=== PATIENT | female | born 1960 | race Caucasian/White ===

== ENCOUNTER → 2019-11-16 | Outpatient (CLI) | payer OTHER ==
[~2019-11-16] MED LIST: HYDACE5 PO
[2019-11-21 16:10] LABS: HPV 16 Negative (Negative); HPV 18 Negative (Negative); HPV OTHER HR TYPES Negative (Negative)
== END | disposition home or self-care (01) ==
LOC: LAB 19:14 → LAB SHORT 19:14
PROVIDERS: Family Medicine
DX: Z01.419 Encounter for gynecological examination (general) (routine) without abnormal findings (principal)
CPT/HCPCS: 87624; G0123

== ENCOUNTER 2023-10-01 12:45 | Emergency (ER) | payer OTHER ==
[~2023-10-01] VITALS: Ht 157.5 cm; Wt 73.5 kg
[2023-10-01 13:10] LABS: BASOPHILS ABSOLUTE AUTO 0.04 K/mm3 (0.00-0.23); BASOPHILS PERCENT AUTO 0 % (0-2); EOSINOPHILS ABSOLUTE AUTO 0.01 K/mm3 (0.00-0.68); EOSINOPHILS PERCENT AUTO 0 % (0-6); Hematocrit 44.6 % (33.0-51.0); Hemoglobin 15.2 g/dL (11.5-16.0); IMMATURE GRAN PERCENT AUTO 1 % (0-1); LYMPHOCYTES ABSOLUTE AUTO 1.46 K/mm3 (0.84-5.20); LYMPHOCYTES PERCENT AUTO 9 % (21-46); MONOCYTES ABSOLUTE AUTO 1.25 K/mm3 (0.16-1.47); MONOCYTES PERCENT AUTO 8 % (4-13); Mean Corpuscular HGB 31.1 pg (26.0-34.0); Mean Corpuscular HGB Conc 34.1 g/dL (31.5-36.5); Mean Corpuscular Volume 91 fL (80-100); Mean Platelet Volume 9.3 fL (9.1-12.4); NEUTROPHILS ABSOLUTE AUTO 12.74 K/mm3 (1.96-9.15); NEUTROPHILS PERCENT AUTO 82 % (41-73); Platelet Count 262 K/mm3 (150-400); RDW Coefficient Variation 12.9 % (11.7-14.2); RDW Standard Deviation 42.6 fL (35.1-46.3); Red Blood Cell Count 4.89 M/mm3 (3.80-5.20)
[2023-10-01 13:33] LABS: Albumin, Blood 3.6 g/dL (3.4-5.0); Albumin/Globulin Ratio 0.9 (0.8-1.8); Bilirubin, Total 0.9 mg/dL (0.1-1.0); Calcium, Blood 10.7 mg/dL (8.5-10.1); Creatinine, Blood 0.56 mg/dL (0.40-1.00); Globulin, Blood 4.1 g/dL (2.2-4.0); Potassium, Blood 3.4 mmol/L (3.5-5.5); Total Protein, Blood 7.7 g/dL (6.4-8.2)
[2023-10-01] MEDS ORDERED: ATOR80 PO (14:08)
[2023-10-01] MEDS ORDERED: LOSA25 PO (14:08)
[2023-10-01] MEDS ORDERED: THERA-D2000 UNIT PO (14:09)
[2023-10-01] MEDS ORDERED: STRIVERDI RESPIM4 G1 IH (14:09)
[2023-10-01] MEDS ORDERED: MOME220I INH (14:09)
[2023-10-01] MEDS ORDERED: ALBU2.5V5 INH (14:10)
[2023-10-01] MEDS ORDERED: Mag Hydrox/AL Hydrox/Simeth 30 ML UDC PO ONE (14:55)
[2023-10-01] MEDS ORDERED: Pantoprazole Sodium 40 MG Injection IV ONE (14:55)
[2023-10-01] MEDS ORDERED: Lidocaine 2% Viscous Soln 15 ML UDC PO ONE (14:55)
[2023-10-01] MEDS ORDERED: Ondansetron HCl 2 MG / ML 2ML Vial IV PRN (16:40)
[2023-10-01] MEDS ORDERED: HYDROmorphone HCl/Pf 1MG SYR IV PRN (16:40)
[2023-10-01] MEDS ORDERED: OMEPRAZOLE MAGN20 MG PO (17:41)
[2023-10-01] MEDS ORDERED: Percocet 5-3251 EACH PO (17:41)
[2023-10-01 18:05] VITALS: BP 160/71
== END 2023-10-01 18:11 | disposition home or self-care (01) ==
LOC: ER 12:45
PROVIDERS: Physician Assistant
DX: R07.9 Chest pain, unspecified (principal); Z79.899 Other long term (current) drug therapy; F17.200 Nicotine dependence, unspecified, uncomplicated; J44.89 Other specified chronic obstructive pulmonary disease
CPT/HCPCS: 71046; 71260; 80053; 84484; 85025; 93005; 93010; 96374-59; 96375-59; 99285-25; A9270; C9113; J1170; J2405; Q9967

== ENCOUNTER → 2023-10-05 | Outpatient (CLI) | payer OTHER ==
[~2023-10-05] MED LIST changes: +ALBU2.5V5 INH; +ATOR80 PO; +LOSA25 PO; +MOME220I INH; +OMEPRAZOLE MAGN20 MG PO; +OXYCODONE-ACET1 EAC3 PO; +Percocet 5-3251 EACH PO; +STRIVERDI RESPIM4 G1 IH; +THERA-D2000 UNIT PO
[2023-10-05 19:30] LABS: Hematocrit 38.7 % (33.0-51.0); Hemoglobin 13.2 g/dL (11.5-16.0); Mean Corpuscular HGB 30.9 pg (26.0-34.0); Mean Corpuscular HGB Conc 34.1 g/dL (31.5-36.5); Mean Corpuscular Volume 91 fL (80-100); Mean Platelet Volume 11.1 fL (9.1-12.4); Platelet Count 220 K/mm3 (150-400); RDW Coefficient Variation 13.1 % (11.7-14.2); RDW Standard Deviation 43.1 fL (35.1-46.3); Red Blood Cell Count 4.27 M/mm3 (3.80-5.20); White Blood Cell Count 10.33 K/mm3 (4.00-11.30)
[2023-10-05 19:34] LABS: Albumin, Blood 2.5 g/dL (3.4-5.0); Albumin/Globulin Ratio 0.5 (0.8-1.8); Bilirubin, Total 1.3 mg/dL (0.1-1.0); Bun/Creatinine Ratio 23.4 (12.0-20.0); Creatinine, Blood 2.01 mg/dL (0.40-1.00); Globulin, Blood 4.8 g/dL (2.2-4.0); Total Protein, Blood 7.3 g/dL (6.4-8.2)
[2023-10-05 19:49] LABS: BAND PERCENT MAN 9 % (0-8); BASOPHILS PERCENT MAN 0 % (0-2); EOSINOPHILS PERCENT MAN 0 % (0-6); LYMPHOCYTES ABSOLUTE MAN 0.41 K/mm3 (0.84-5.20); LYMPHOCYTES PERCENT MAN 4 % (21-46); MONOCYTES ABSOLUTE MAN 0.61 K/mm3 (0.16-1.47); MONOCYTES PERCENT MAN 6 % (4-13); NEUTROPHILS ABSOLUTE MAN 9.29 K/mm3 (1.96-9.15); SEG NEUTROPHILS PERCENT MAN 81 % (41-73); TOTAL CELLS COUNTED 100
== END | disposition home or self-care (01) ==
LOC: LAB SHORT 18:26 → LAB 18:26
PROVIDERS: Family Medicine
DX: R00.0 Tachycardia, unspecified (principal)
CPT/HCPCS: 80053; 85025

== ENCOUNTER 2023-10-06 13:36 | Inpatient (IN) | payer OTHER ==
[~2023-10-06] VITALS: Ht 157.5 cm; Wt 71.5 kg
[~2023-10-06 13:36] MED LIST changes: -OXYCODONE-ACET1 EAC3 PO
[2023-10-06 14:19] LABS: Hematocrit 36.8 % (33.0-51.0); Hemoglobin 12.7 g/dL (11.5-16.0); Mean Corpuscular HGB 30.9 pg (26.0-34.0); Mean Corpuscular HGB Conc 34.5 g/dL (31.5-36.5); Mean Corpuscular Volume 90 fL (80-100); Mean Platelet Volume 10.7 fL (9.1-12.4); Platelet Count 209 K/mm3 (150-400); RDW Coefficient Variation 13.1 % (11.7-14.2); Red Blood Cell Count 4.11 M/mm3 (3.80-5.20); White Blood Cell Count 12.34 K/mm3 (4.00-11.30)
[2023-10-06 14:50] LABS: Albumin, Blood 2.3 g/dL (3.4-5.0); Albumin/Globulin Ratio 0.5 (0.8-1.8); Bilirubin, Total 1.3 mg/dL (0.1-1.0); Bun/Creatinine Ratio 35.6 (12.0-20.0); Calcium, Blood 8.1 mg/dL (8.5-10.1); Creatinine, Blood 1.35 mg/dL (0.40-1.00); Globulin, Blood 4.9 g/dL (2.2-4.0); Total Protein, Blood 7.2 g/dL (6.4-8.2)
[2023-10-06] MEDS ORDERED: NS 1,000 ML IV SCH ×2 (14:55→16:00)
[2023-10-06 15:29] LABS: BAND PERCENT MAN 36 % (0-8); BASOPHILS PERCENT MAN 0 % (0-2); EOSINOPHILS PERCENT MAN 0 % (0-6); LYMPHOCYTES ABSOLUTE MAN 0.37 K/mm3 (0.84-5.20); LYMPHOCYTES PERCENT MAN 3 % (21-46); MONOCYTES ABSOLUTE MAN 1.11 K/mm3 (0.16-1.47); MONOCYTES PERCENT MAN 9 % (4-13); MYELOCYTE ABSOLUTE MAN 0.12 K/mm3 (0.00-0.00); MYELOCYTE PERCENT MAN 1 % (0-0); NEUTROPHILS ABSOLUTE MAN 10.73 K/mm3 (1.96-9.15); SEG NEUTROPHILS PERCENT MAN 51 % (41-73); TOTAL CELLS COUNTED 100
[2023-10-06] MEDS ORDERED: Potassium Chloride 20 MEQ TabCR PO ONE (15:55)
[2023-10-06] MEDS ORDERED: Acetaminophen 500 MG Tab PO PRN (15:55)
[2023-10-06] MEDS ORDERED: Polyethylene Glycol 3350 17 gm PO PRN (15:55)
[2023-10-06] MEDS ORDERED: TraMADol HCl 50 MG Tab PO PRN (16:00)
[2023-10-06] MEDS ORDERED: OXYCODONE-ACET1 EAC3 PO (16:23)
[2023-10-06 17:32] VITALS: BP 131/66
[2023-10-06 18:26] LABS: Source, Urine Clean Catch
[2023-10-06 18:55] LABS: Appearance, Urine Hazy (Clear); Bilirubin, Urine Neg (Neg); Blood, Urine 3+ (Neg); Color, Urine Yellow (P-Yellow); Glucose Qualitative, Urine Neg (Neg); Ketones, Urine 1+ (Neg); Leukocyte Esterase, Urine Neg (Neg); Nitrite, Urine Neg (Neg); Protein, Urine 2+ (Neg); Urobilinogen, Urine NORM (Normal)
--- NOTE | 2023-10-06 18:59 | NUR ---
1730 RECEIVED PT TO RM 333 VIA W/C FROM ER. PT ABLE TO TX SELF TO BED WITH SBA. PT A LITTLE WEAK AND UNSTEADY WHEN FIRST GETTING UP OUT OF CHAIR OR BED. ABLE TO AMBULATE INDEPENDENTLY TO [facility]. IMAGING HERE SHORTLY AFTER ARRIVAL TO COMPLETE ABD AND RENAL US. RECEIVED REPORT FROM MADHAVI VILLAGOMEZ. PT ADMITTED FOR BONNIE, POSSIBLY D/T CONTRAST GIVEN FOR PE STUDY DONE ON WEDNESDAY; PER REPORT. PT RECEIVING IVF'S TO [facility]. UA OBTAINED AND SENT BETWEEN US PICTURES FOR PRE AND POST VOID PICTURES. DENIES FURTHER NEEDS AT THIS TIME. VISITOR TO RM. CALL LT IN REACH. REPORT GIVEN TO CARMEN VILLAGOMEZ.
[2023-10-06 19:00] VITALS: BP 121/64
[2023-10-06 19:15] LABS: Red Blood Cells, Urine 0-2 /hpf (0-2); Squamous Epithelial Cells Many /hpf (Few)
[2023-10-06 19:16] LABS: Amorphous Light (0-Heavy); Bacteria Many /hpf; Mucus Light (0-Heavy); Transitional Epithelial Cells Rare /hpf (0-Rare)
[2023-10-06] MEDS ORDERED: Albuterol 2.5 MG/3 ML VIAL INH PRN (21:20)
[2023-10-06] MEDS ORDERED: Albuterol 2.5 MG/3 ML VIAL INH SCH (21:20)
[2023-10-07 03:03] VITALS: BP 142/77
[2023-10-07 06:15] LABS: Hematocrit 37.6 % (33.0-51.0); Hemoglobin 12.6 g/dL (11.5-16.0); Mean Corpuscular HGB 30.4 pg (26.0-34.0); Mean Corpuscular HGB Conc 33.5 g/dL (31.5-36.5); Mean Corpuscular Volume 91 fL (80-100); Platelet Count 195 K/mm3 (150-400); RDW Coefficient Variation 13.3 % (11.7-14.2); RDW Standard Deviation 44.2 fL (35.1-46.3); Red Blood Cell Count 4.15 M/mm3 (3.80-5.20); White Blood Cell Count 10.76 K/mm3 (4.00-11.30)
--- NOTE | 2023-10-07 06:38 | NUR ---
Patient alert and oriented x3 overnight, VSS, tolerating room air well. NS @ 75 infusing into right AC PIV, tolerating well. Patient ambulating to restroom with standby assistance for voiding, slightly unsteady on feet, slightly impulsive/forgetful of limitations.
[2023-10-07 06:54] LABS: Albumin/Globulin Ratio 0.4 (0.8-1.8); Bilirubin, Total 1.2 mg/dL (0.1-1.0); Bun/Creatinine Ratio 34.3 (12.0-20.0); Calcium, Blood 7.9 mg/dL (8.5-10.1); Creatinine, Blood 0.79 mg/dL (0.40-1.00); Globulin, Blood 4.9 g/dL (2.2-4.0); Potassium, Blood 3.1 mmol/L (3.5-5.5); Total Protein, Blood 6.9 g/dL (6.4-8.2)
[2023-10-07] MEDS ORDERED: Potassium Chloride 20 MEQ TabCR PO ONE (07:20)
[2023-10-07 08:00] VITALS: BP 142/73
[2023-10-07] MEDS ORDERED: Thiamine HCl 100 MG Tab PO SCH (09:00)
[2023-10-07] MEDS ORDERED: Multivitamins 1 Tab PO SCH (09:00)
[2023-10-07] MEDS ORDERED: Nicotine 14 MG PATCH TOP SCH (09:30)
--- NOTE | 2023-10-07 15:50 | NUR ---
SHIFT SUMMARY PT AOX4, INDEPENDENT IN THE ROOM. MEDICATED PER THE EMAR FOR PAIN. CALLS AND MAKES HIS NEEDS KNOWN. NO ACUTE EVENTS THIS SHIFT. TELE APPLIED AND NO EVENTS. CALL LIGHT WITHIN REACH, BED LOCKED AND IN THE LOWEST POSITION. REPORT GIVEN TO THE NURSE THAT WILL RESUME CARE UNTIL SHIFT CHANGE.
[2023-10-07 16:20] VITALS: BP 135/77
[2023-10-07] MEDS ORDERED: Vancomycin HCL 1,500 MG in NS 250 ML IV ONE (17:25)
[2023-10-07] MEDS ORDERED: Piperacillin/Tazobactam Sod 3.375 GM in NS 100 ML IV SCH (18:00)
--- NOTE | 2023-10-07 19:32 | NUR ---
SHIFT SUMMARY- THIS RN ASSUMED CARE AT 1615. PT MEDICATED FOR ABD PAIN ONCE. PER DR LAWRENCE THE MRI SHOWS AN ABCESS AND THE SURGEON DR ROSA IS GOING TO COME SEE THE PT. BLOOD CULTURES COMPLETED. IV ABX STARTED. PT HAD A CT ABD AND PELVIS WELL THIS EVENING. PT IN BED WITH IV ABX INFUSING. BEDSIDE REPORT COMPLETED WITH HERNANDO HANSEN.
[2023-10-07 19:52] VITALS: BP 167/72
--- NOTE | 2023-10-07 20:32 | NUR ---
WARD AIDE REPORTS ST 130 WITH [address] 160 AND BACK DOWN. PATIENT ASYMPTOMATIC. REPORTED COUGHING EVENT PRIOR. [facility].
[2023-10-07] MEDS ORDERED: NS 250 ML IV PRN (21:40)
[2023-10-08 02:45] VITALS: BP 141/91
--- NOTE | 2023-10-08 04:13 | NUR ---
SHIFT SUMMARY PATIENT FEBRILE AT START OF SHIFT 100.4 AND BACKDOWN TO 97.3. TELEMETRY REPORTED ST 130'S AND SLOWLY DOWN TO 120'S AND NOW ST 104. AXO X 4 AND INDEPENDENT IN ROOM. PIV INTACT. IV ABX INFUSED. DENIES CHEST PAIN, SOB, AND N/V. HYPERTENSIVE AT SHIFT CHANGE 167/72 AND NOW 141/91. LIFE PARTNER IN ROOM FOR A FEW HOURS BEFORE LEAVING. CALL LIGHT IN REACH. BED IN LOWEST POSITION. WILL CONTINUE TO MONITOR UNTIL DAY SHIFT NURSE ASSUMES CARE.
[2023-10-08 05:40] LABS: Hematocrit 34.7 % (33.0-51.0); Hemoglobin 11.8 g/dL (11.5-16.0); Mean Corpuscular HGB 30.7 pg (26.0-34.0); Mean Corpuscular Volume 90 fL (80-100); Platelet Count 185 K/mm3 (150-400); RDW Coefficient Variation 13.6 % (11.7-14.2); RDW Standard Deviation 45.3 fL (35.1-46.3); Red Blood Cell Count 3.84 M/mm3 (3.80-5.20); White Blood Cell Count 16.84 K/mm3 (4.00-11.30)
[2023-10-08 06:13] LABS: Albumin, Blood 1.7 g/dL (3.4-5.0); Albumin/Globulin Ratio 0.4 (0.8-1.8); Bilirubin, Total 1.2 mg/dL (0.1-1.0); Bun/Creatinine Ratio 24.9 (12.0-20.0); Calcium, Blood 7.9 mg/dL (8.5-10.1); Creatinine, Blood 0.68 mg/dL (0.40-1.00); Globulin, Blood 4.6 g/dL (2.2-4.0); Potassium, Blood 3.7 mmol/L (3.5-5.5); Total Protein, Blood 6.3 g/dL (6.4-8.2)
[2023-10-08] MEDS ORDERED: Vancomycin HCL 1,000 MG in NS 250 ML IV SCH ×2 (07:00→19:00)
[2023-10-08 07:29] VITALS: BP 144/82
[2023-10-08] MEDS ORDERED: HYDROcodone 5-APAP 325 TAB PO PRN (15:55)
[2023-10-08 16:00] VITALS: BP 150/79
--- NOTE | 2023-10-08 18:34 | NUR ---
SHIFT SUMMARY: PT IS A/O X 4, IND WITH STANDBY ASSIST IN ROOM, PLEASANT AND COOPERATIVE WITH CARE. PT PAIN WAS NOT WELL MANAGED WITH TRAMADOL. NORCO ORDERED AND PT REPORTED EFFECTIVE PAIN MANAGEMENT FOR ABD PAIN. PT REPORTING SHE HAS APPETITE BUT DOES NOT LIKE THE FOOD. OFFERED SNACKS. INSTRUCTED PT HOW TO ORDER FROM MENU. PT AMBULATED GAITAN THIS EVENING AND WAS STEADY ON FEET. PT HAS MOTTLED SKIN FROM THIGHS DOWN. SKIN IS WARM, FAINT PEDAL PULSES. PT REPORTS "I'M ALWAYS LIKE THIS , IT'S FROM SMOKING SO MANY YEARS." PT DENIES N/T TO EXT. ON RA. SLIGHTLY ELEVATED BP THIS EVENING AND HR 106. NO C/O CP OR PRESSURE.
[2023-10-08 20:03] VITALS: BP 136/70
[2023-10-09] MEDS ORDERED: Mometasone Furoate Inhaler 220 mcg 14 ACT INH SCH (01:30)
[2023-10-09] MEDS ORDERED: Albuterol 2.5 MG/3 ML VIAL INH SCH (02:00)
[2023-10-09 05:10] VITALS: BP 150/78
[2023-10-09 05:11] LABS: Hemoglobin 11.3 g/dL (11.5-16.0); Mean Corpuscular HGB Conc 34.2 g/dL (31.5-36.5); Mean Corpuscular Volume 90 fL (80-100); Platelet Count 205 K/mm3 (150-400); RDW Coefficient Variation 13.8 % (11.7-14.2); Red Blood Cell Count 3.65 M/mm3 (3.80-5.20); White Blood Cell Count 16.35 K/mm3 (4.00-11.30)
[2023-10-09 05:31] LABS: Vancomycin, Trough 12.6 ug/mL (5.0-10.0)
[2023-10-09 05:36] LABS: Albumin, Blood 1.6 g/dL (3.4-5.0); Albumin/Globulin Ratio 0.3 (0.8-1.8); Bilirubin, Total 1.5 mg/dL (0.1-1.0); Bun/Creatinine Ratio 18.9 (12.0-20.0); Calcium, Blood 7.8 mg/dL (8.5-10.1); Creatinine, Blood 0.58 mg/dL (0.40-1.00); Globulin, Blood 4.8 g/dL (2.2-4.0); Potassium, Blood 3.1 mmol/L (3.5-5.5); Total Protein, Blood 6.4 g/dL (6.4-8.2)
--- NOTE | 2023-10-09 06:16 | NUR ---
SHIFT SUMMARY: NO ACUTE EVENTS. PAIN WELL CONTROLLED WITH CURRENT MEDICATION REGIMEN. HAD TWO 5-SECOND INSTANCES OF SVT (PER HEALTHCARE FACILITY ADMINISTRATOR) WITH RATE UP TO 160; DENIED CHEST PAIN, WAS SLEEPING WHEN THEY OCCURRED. GETTING UP TO BR WITH SBA, DENIED DIZZINESS. SKIN IS MOTTLED ON BLE, WHICH SHE STATED IS NORMAL FOR HER. WEARING SCD'S. IS AWAITING SURGERY CONSULT.
[2023-10-09] MEDS ORDERED: Vancomycin HCL 1,250 MG in NS 250 ML IV SCH (07:00)
[2023-10-09 07:28] VITALS: BP 125/70
--- NOTE | 2023-10-09 14:35 | NUR ---
SHIFT SUMMARY: PATIENT A/OX4, CALM, PLEASANT AND COOPERATIVE c CARE. PATIENT DENIES CP/PRESSURE, SOB, N/V AND DIZZINESS. NO EVENTS ON TELE, ST HR IN THE LOW 100'S BPM THIS SHIFT. PATIENT REPORTS PAIN WELL CONTROLLED c EMAR PAIN MEDS. PATIENT HAS MOD APPETITE, CONTINENT OF BOWEL/BLADDER, AMBULATES TO BATHROOM INDEPENDENTLY T/O SHIFT. VITAL SIGNS REVIEWED. PATIENT RECEIVED IV ABX/SCHEDULED MEDS PER. PATIENT RESTING IN BED ON/OFF, NO COMPLAINTS OR DENIES NEW CONCERNED THIS SHIFT. CALL LIGHT IN REACH.
[2023-10-09 14:49] VITALS: BP 151/80
[2023-10-09 19:39] VITALS: BP 157/86
--- NOTE | 2023-10-09 19:52 | NUR ---
PATIENT WITH TEMP 101.3 AND INCREASING PAIN IN EPIGASTRIC REGION AND R SHOULDER. RECEIVING IV VANCO AND ZOSYN. MEDICATED FOR PAIN AND FEVER AT 1939. NOTIFIED DR. ISAAC VIA TELEPHONE. NO NEW ORDERS AT THIS TIME. WILL CONTINUE TO MONITOR.
[2023-10-09 20:52] VITALS: BP 146/82
[2023-10-10 05:31] VITALS: BP 161/83
[2023-10-10 07:07] LABS: Vancomycin, Trough 24.3 ug/mL (5.0-10.0)
--- NOTE | 2023-10-10 07:18 | NUR ---
SHIFT SUMMARY: TEMPERATURE DECREASED TO 99.3 AFTER TYLENOL GIVEN. NO EVENTS ON TELEMETRY, SR-ST 95-120'S. C/O PAIN IN BACK, EPIGASTRIC, AND R SHOULDER; MEDICATED PER EMAR WITH ADEQUATE RELIEF. ON ROOM AIR, EXPIRATORY WHEEZES THROUGHOUT, RECEIVING NEB TREATMENTS. WEARING SCD'S, IS INDEPENDENT IN ROOM.
[2023-10-10 07:38] VITALS: BP 135/83
[2023-10-10 07:52] LABS: Hematocrit 36.6 % (33.0-51.0); Hemoglobin 12.4 g/dL (11.5-16.0); Mean Corpuscular HGB 30.6 pg (26.0-34.0); Mean Corpuscular HGB Conc 33.9 g/dL (31.5-36.5); Mean Corpuscular Volume 90 fL (80-100); Mean Platelet Volume 10.4 fL (9.1-12.4); Platelet Count 255 K/mm3 (150-400); RDW Coefficient Variation 14.2 % (11.7-14.2); RDW Standard Deviation 47.1 fL (35.1-46.3); Red Blood Cell Count 4.05 M/mm3 (3.80-5.20); White Blood Cell Count 18.38 K/mm3 (4.00-11.30)
[2023-10-10 08:06] LABS: Bun/Creatinine Ratio 13.3 (12.0-20.0); Calcium, Blood 8.4 mg/dL (8.5-10.1); Creatinine, Blood 0.98 mg/dL (0.40-1.00); Potassium, Blood 3.3 mmol/L (3.5-5.5)
[2023-10-10] MEDS ORDERED: Potassium Chloride 20 MEQ TabCR PO ONE (12:20)
[2023-10-10 15:14] VITALS: BP 142/80
--- NOTE | 2023-10-10 15:58 | NUR ---
SHIFT SUMMARY: PATIENT HAS A LOW GRADE TEMP OF 99.3, NO EVENTS ON TELE ST IN THE MID 110'S. PATIENT A/OX4, CALM, PLEASANT AND COOPERATIVE c CARE, PAIN TO R SHOULDER/EPIGASTRIC WELL CONTROLLED c EMAR PAIN MEDS. PATIENT AMBULATED c SPOUSE TODAY OUT IN THE GAITAN, DID WELL, DENIES SOB, DIZZINESS, N/V, CP/PRESSURE. PATIENT HAS FAIR APPETITE, CONTINENT OF BOWEL/BLADDER, AMBULATES TO BATHROOM INDEPENDENTLY T/O SHIFT. PATIENT RECEIVED IV ABX/SCHEDULED MEDS PER EMAR. VITAL SIGNS REVIEWED. CALL LIGHT IN REACH.
[2023-10-10] MEDS ORDERED: Vancomycin HCL 1,000 MG in NS 250 ML IV SCH (16:00)
[2023-10-10 19:24] VITALS: BP 134/70
[2023-10-11 02:51] VITALS: BP 141/82
--- NOTE | 2023-10-11 05:26 | NUR ---
SHIFT SUMMARY PT A&0X4 AND ANSWERS QUESTIONS APPROPRIATELY. HS MEDICATIONS ADMINISTERED. IV ANTIBIOTICS INFUSED VIA IV. PT MEDICATED PER EMAR FOR PAIN IN HER RIGHT SHOULDER. PT INDEPENDENT IN ROOM. PT SPENT SHIFT RESTING IN BED WITH EYES CLOSED. VSS, NO COMPLAINTS OF CP/PRESSURE OR SOB. HR SHOWING SINUS TACH ON TELEMETRY, NO ADVERSE EFFECTS IN PT. NO ACUTE EVENTS AT THIS TIME. PT LEFT IN A POSITION OF SAFETY WITH FALL PRECAUTIONS IN PLACE AND CALL LIGHT IN REACH.
[2023-10-11 05:37] LABS: Hematocrit 30.8 % (33.0-51.0); Hemoglobin 10.4 g/dL (11.5-16.0); Mean Corpuscular HGB 30.6 pg (26.0-34.0); Mean Corpuscular HGB Conc 33.8 g/dL (31.5-36.5); Mean Corpuscular Volume 91 fL (80-100); Mean Platelet Volume 10.3 fL (9.1-12.4); Platelet Count 226 K/mm3 (150-400); RDW Coefficient Variation 14.2 % (11.7-14.2); RDW Standard Deviation 46.9 fL (35.1-46.3); White Blood Cell Count 16.67 K/mm3 (4.00-11.30)
[2023-10-11 06:05] LABS: Albumin, Blood 1.5 g/dL (3.4-5.0); Anion Gap 11 mmol/L (3-11); Blood Urea Nitrogen 21 mg/dL (8-24); Bun/Creatinine Ratio 14.3 (12.0-20.0); CO2, Blood 26 mmol/L (21-32); Calcium, Blood 8.8 mg/dL (8.5-10.1); Chloride, Blood 104 mmol/L (98-108); Creatinine, Blood 1.47 mg/dL (0.40-1.00); Glomerular Filtration Rate 40 (60-); Glucose, Blood 140 mg/dL (70-99); Phosphorus, Blood 3.1 mg/dL (2.5-4.9); Potassium, Blood 3.5 mmol/L (3.5-5.5); Sodium, Blood 137 mmol/L (136-145)
[2023-10-11] MEDS ORDERED: Magnesium Sulf 2 GM/Water 50ML 50 ML IV STA (06:13)
[2023-10-11 07:21] VITALS: BP 144/77
[2023-10-11] MEDS ORDERED: Lactated Ringer's 1,000 ML IV SCH (09:00)
[2023-10-11 13:18] LABS: Hematocrit 32.9 % (33.0-51.0); Hemoglobin 11.2 g/dL (11.5-16.0)
[2023-10-11 15:05] VITALS: BP 137/72
[2023-10-11 15:50] LABS: Vancomycin, Trough 30.6 ug/mL (5.0-10.0)
[2023-10-11] MEDS ORDERED: Dose Adjust by Pharmacy XX STA (15:53)
[2023-10-11] MEDS ORDERED: HYDROmorphone HCl/Pf 1MG SYR IV PRN (16:55)
--- NOTE | 2023-10-11 18:35 | NUR ---
SHIFT SUMMARY PT AXO, PLEASANT AND COOPERATIVE WITH CARE THOUGH PAINFUL. PT MEDICATED FOR PAIN PER EMAR THOUGH PT CONTINUED TO BE PAINFUL RATING PAIN 7-10/10. DR MEIER NOTIFED, NEW ORDERS IN PLACE. PT EXPRESSED GRATITUDE THAT HER PAIN WAS NOW 2/10 AND REDUCING FURTHER AND THAT SHE GOT SOME RELIEF. IV PATENT AND INFUSING PER EMAR. VSS. PT UP AD KAYLIE WITH STEADY GAIT. BED IN LOW POSITION, CALL LIGHT WITHIN REACH.
[2023-10-11 19:23] VITALS: BP 163/95
[2023-10-11] MEDS ORDERED: Lactobacil 2-S.Thermo-Bifido 1 1 Cap PO SCH (21:00)
[2023-10-12 02:16] VITALS: BP 159/88
[2023-10-12 05:28] LABS: BASOPHILS ABSOLUTE AUTO 0.04 K/mm3 (0.00-0.23); BASOPHILS PERCENT AUTO 0 % (0-2); EOSINOPHILS ABSOLUTE AUTO 0.08 K/mm3 (0.00-0.68); EOSINOPHILS PERCENT AUTO 0 % (0-6); Hematocrit 31.5 % (33.0-51.0); Hemoglobin 10.7 g/dL (11.5-16.0); IMMATURE GRAN PERCENT AUTO 2 % (0-1); LYMPHOCYTES ABSOLUTE AUTO 1.45 K/mm3 (0.84-5.20); LYMPHOCYTES PERCENT AUTO 8 % (21-46); MONOCYTES ABSOLUTE AUTO 0.94 K/mm3 (0.16-1.47); MONOCYTES PERCENT AUTO 5 % (4-13); Mean Corpuscular HGB 30.7 pg (26.0-34.0); Mean Corpuscular Volume 90 fL (80-100); Mean Platelet Volume 9.7 fL (9.1-12.4); NEUTROPHILS ABSOLUTE AUTO 15.33 K/mm3 (1.96-9.15); NEUTROPHILS PERCENT AUTO 85 % (41-73); Platelet Count 259 K/mm3 (150-400); RDW Coefficient Variation 14.2 % (11.7-14.2); Red Blood Cell Count 3.49 M/mm3 (3.80-5.20); White Blood Cell Count 18.14 K/mm3 (4.00-11.30)
--- NOTE | 2023-10-12 05:44 | NUR ---
SHIFT SUMMARY PT A&OX4 AND ANSWERS QUESTIONS APPROPRIATELY. PT RECEIVED IV ANTIBIOTICS. PT VSS, NO COMPLAINTS OF CP/PRESSURE OR SOB. PT SPENT MOST OF SHIFT IN BED BUT VERBALIZES DIFFICULTY WITH SLEEP. PT RUNNING NSR ON CONTINUOUS TELEMETRY. NO ACUTE EVENTS AT THIS TIME, PT LEFT IN A POSITION OF SAFETY WITH FALL PRECAUTIONS IN PLACE. CALL LIGHT IN REACH.
[2023-10-12 05:47] LABS: Alanine Aminotransfer (ALT/SGP 45 U/L (12-78); Albumin, Blood 1.6 g/dL (3.4-5.0); Albumin/Globulin Ratio 0.3 (0.8-1.8); Alk Phos 118 U/L (50-136); Anion Gap 12 mmol/L (3-11); Aspartate Aminotrans (AST/SGOT 44 U/L (12-37); Bilirubin, Total 1.3 mg/dL (0.1-1.0); Blood Urea Nitrogen 20 mg/dL (8-24); Bun/Creatinine Ratio 13.8 (12.0-20.0); CO2, Blood 26 mmol/L (21-32); Calcium, Blood 8.7 mg/dL (8.5-10.1); Chloride, Blood 103 mmol/L (98-108); Creatinine, Blood 1.45 mg/dL (0.40-1.00); Globulin, Blood 4.8 g/dL (2.2-4.0); Glomerular Filtration Rate 41 (60-); Glucose, Blood 117 mg/dL (70-99); Magnesium, Blood 1.6 mg/dL (1.6-2.4); Potassium, Blood 3.8 mmol/L (3.5-5.5); Sodium, Blood 137 mmol/L (136-145); Total Protein, Blood 6.4 g/dL (6.4-8.2); Vancomycin, Random 22.4 ug/mL
[2023-10-12 07:33] VITALS: BP 148/73
[2023-10-12 12:24] LABS: Stool Occult Blood Guaiac 1 Neg (Neg)
[2023-10-12 15:50] VITALS: BP 159/92
[2023-10-12 19:36] VITALS: BP 173/82
--- NOTE | 2023-10-12 20:13 | NUR ---
SHIFT SUMMARY- PT ALERT, ORIENTED AND INDEPENDENT IN THE ROOM. BEDSIDE REPORT COMPLETED WITH NIGHT RN. PT STATED AT THE TIME OF REPORT SHE WAS GETTING TO WHERE SHE MIGHT NEED SOME PAIN MEDICATION. NIGHT RN AWARE. NO CURRENT S&S OF DISTRESS NOTED.
[2023-10-12] MEDS ORDERED: Vancomycin HCL 1,250 MG in NS 250 ML IV SCH (21:00)
--- NOTE | 2023-10-13 05:18 | NUR ---
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 HERE FOR ABD PAIN AND LIVER ABSCESS. COMPLAINED OF ABD PAIN RADIATING TO THE LATERAL SIDE OF ADB. PAIN MEDS GIVEN. PATIENT SLEPT WEEL AFTER TAKING PAIN MEDS.
[2023-10-13 05:30] VITALS: BP 156/91
[2023-10-13 06:12] LABS: BASOPHILS ABSOLUTE AUTO 0.03 K/mm3 (0.00-0.23); BASOPHILS PERCENT AUTO 0 % (0-2); EOSINOPHILS ABSOLUTE AUTO 0.06 K/mm3 (0.00-0.68); EOSINOPHILS PERCENT AUTO 0 % (0-6); Hematocrit 30.1 % (33.0-51.0); Hemoglobin 9.9 g/dL (11.5-16.0); IMMATURE GRAN ABSOLUTE AUTO 0.22 K/mm3 (0.00-0.10); IMMATURE GRAN PERCENT AUTO 1 % (0-1); LYMPHOCYTES ABSOLUTE AUTO 1.12 K/mm3 (0.84-5.20); LYMPHOCYTES PERCENT AUTO 7 % (21-46); MONOCYTES ABSOLUTE AUTO 0.95 K/mm3 (0.16-1.47); MONOCYTES PERCENT AUTO 6 % (4-13); Mean Corpuscular HGB 30.1 pg (26.0-34.0); Mean Corpuscular HGB Conc 32.9 g/dL (31.5-36.5); Mean Corpuscular Volume 92 fL (80-100); Mean Platelet Volume 9.7 fL (9.1-12.4); NEUTROPHILS ABSOLUTE AUTO 13.53 K/mm3 (1.96-9.15); NEUTROPHILS PERCENT AUTO 85 % (41-73); Platelet Count 279 K/mm3 (150-400); RDW Coefficient Variation 14.1 % (11.7-14.2); Red Blood Cell Count 3.29 M/mm3 (3.80-5.20); White Blood Cell Count 15.91 K/mm3 (4.00-11.30)
[2023-10-13 06:32] LABS: Albumin, Blood 1.5 g/dL (3.4-5.0); Albumin/Globulin Ratio 0.3 (0.8-1.8); Bun/Creatinine Ratio 12.4 (12.0-20.0); Calcium, Blood 8.5 mg/dL (8.5-10.1); Creatinine, Blood 1.53 mg/dL (0.40-1.00); Globulin, Blood 4.9 g/dL (2.2-4.0); Magnesium, Blood 1.7 mg/dL (1.6-2.4); Potassium, Blood 3.8 mmol/L (3.5-5.5); Total Protein, Blood 6.4 g/dL (6.4-8.2)
[2023-10-13 07:36] VITALS: BP 165/82
[2023-10-13 15:26] VITALS: BP 151/88
--- NOTE | 2023-10-13 18:24 | NUR ---
SHIFT SUMMARY PT CONT WITH LEVEL OF CARE WITH NO ACUTE CHANGES NOTED THIS SHIFT.
[2023-10-13 20:46] VITALS: BP 159/83
[2023-10-14 04:19] VITALS: BP 178/89
--- NOTE | 2023-10-14 04:57 | NUR ---
SUMMARY- PT PAIN MANGED WELL WITH ORDERED PO MEDS. PT HAS NOTED SWELLING ON LEFT FOOT. PT STATES SWELLING IS NEW TO HER. DENIES DISCOMFORT IN FOOT. PT HAS BEEN UP TO VOID. NO OTHER ISSES NOTED. PT HAS BEEN ABLE TO REST COMFORTABLY THROUGHOUT NIGHT. PT CURRENTLY AWAKE AND IN NO DISTRESS. CALL LIGHT IN REACH.
[2023-10-14 05:15] LABS: BASOPHILS ABSOLUTE AUTO 0.03 K/mm3 (0.00-0.23); BASOPHILS PERCENT AUTO 0 % (0-2); EOSINOPHILS ABSOLUTE AUTO 0.07 K/mm3 (0.00-0.68); EOSINOPHILS PERCENT AUTO 1 % (0-6); Hematocrit 29.5 % (33.0-51.0); Hemoglobin 9.7 g/dL (11.5-16.0); IMMATURE GRAN ABSOLUTE AUTO 0.19 K/mm3 (0.00-0.10); IMMATURE GRAN PERCENT AUTO 1 % (0-1); LYMPHOCYTES ABSOLUTE AUTO 0.83 K/mm3 (0.84-5.20); LYMPHOCYTES PERCENT AUTO 6 % (21-46); MONOCYTES ABSOLUTE AUTO 1.01 K/mm3 (0.16-1.47); MONOCYTES PERCENT AUTO 7 % (4-13); Mean Corpuscular HGB Conc 32.9 g/dL (31.5-36.5); Mean Corpuscular Volume 91 fL (80-100); Mean Platelet Volume 9.4 fL (9.1-12.4); NEUTROPHILS ABSOLUTE AUTO 12.18 K/mm3 (1.96-9.15); NEUTROPHILS PERCENT AUTO 85 % (41-73); Platelet Count 299 K/mm3 (150-400); Red Blood Cell Count 3.23 M/mm3 (3.80-5.20); White Blood Cell Count 14.31 K/mm3 (4.00-11.30)
[2023-10-14 05:45] LABS: Albumin, Blood 1.6 g/dL (3.4-5.0); Albumin/Globulin Ratio 0.3 (0.8-1.8); Bilirubin, Total 0.9 mg/dL (0.1-1.0); Bun/Creatinine Ratio 10.9 (12.0-20.0); Calcium, Blood 8.7 mg/dL (8.5-10.1); Creatinine, Blood 1.47 mg/dL (0.40-1.00); Globulin, Blood 4.8 g/dL (2.2-4.0); Potassium, Blood 3.5 mmol/L (3.5-5.5); Total Protein, Blood 6.4 g/dL (6.4-8.2)
[2023-10-14 07:32] VITALS: BP 164/82
[2023-10-14] MEDS ORDERED: Enoxaparin 100 MG/ML 1ML SYR SC SCH (12:00)
[2023-10-14 14:25] VITALS: BP 158/73
[2023-10-14 15:10] VITALS: BP 158/73
[2023-10-14 15:40] VITALS: BP 158/73
--- NOTE | 2023-10-14 16:40 | NUR ---
TRANSFER TO [facility] Patient alert & oriented x4. VSS. Plan to transfer to [facility] in [facility] for GI interventions for Liver abscess. Called report to Teresa VILLAGOMEZ at [facility]. Patient will be transported via gurnery. Patient left at 1650.
== END 2023-10-14 16:55 | disposition short-term general hospital (02) | DRG 682 ==
LOC: ER 13:36 → MEDS 13:37
PROVIDERS: Family Medicine; Physician Assistant; ADMIT Internal Medicine
DX: N17.0 Acute kidney failure with tubular necrosis (principal); A41.9 Sepsis, unspecified organism; I81 Portal vein thrombosis; K75.0 Abscess of liver; R65.20 Severe sepsis without septic shock; E87.1 Hypo-osmolality and hyponatremia; D64.9 Anemia, unspecified; J44.9 Chronic obstructive pulmonary disease, unspecified; F10.20 Alcohol dependence, uncomplicated; E87.6 Hypokalemia; E83.42 Hypomagnesemia; F17.210 Nicotine dependence, cigarettes, uncomplicated; E88.810 Metabolic syndrome; Z98.890 Other specified postprocedural states
CPT/HCPCS: 36415; 71046; 73502; 74176; 74177; 74183; 76700; 76857; 80048; 80053; 80069; 80202; 81001; 82140; 82272; 82550; 83036; 83690; 83735; 84484; 85014; 85018; 85025; 85027; 87040; 87086; 93005; 93010; 94640; 94664; 94760; 96360; 96361; 96365; 96366; 96367; 97110; 97161; 99285-25; A9270; A9581; G0378; J1170; J1650; J2543; J3370; J3475; J7030; J7050; J7120; Q9967

== ENCOUNTER 2023-10-23 12:17 | Emergency (ER) | payer OTHER ==
[~2023-10-23] VITALS: Ht 152.4 cm; Wt 68.0 kg
[~2023-10-23 12:17] MED LIST changes: +OXYCODONE-ACET1 EAC3 PO
[2023-10-23 14:36] VITALS: BP 135/68
== END 2023-10-23 14:39 | disposition home or self-care (01) ==
LOC: ER 12:17
DX: Z00.8 Encounter for other general examination (principal); J44.89 Other specified chronic obstructive pulmonary disease; I10 Essential (primary) hypertension; F17.210 Nicotine dependence, cigarettes, uncomplicated; Z79.899 Other long term (current) drug therapy
CPT/HCPCS: 99282

== ENCOUNTER → 2023-11-10 | Outpatient (CLI) | payer OTHER ==
[2023-11-10 11:43] LABS: BASOPHILS ABSOLUTE AUTO 0.03 K/mm3 (0.00-0.23); BASOPHILS PERCENT AUTO 0 % (0-2); EOSINOPHILS ABSOLUTE AUTO 0.14 K/mm3 (0.00-0.68); EOSINOPHILS PERCENT AUTO 2 % (0-6); Hematocrit 34.1 % (33.0-51.0); Hemoglobin 11.2 g/dL (11.5-16.0); IMMATURE GRAN ABSOLUTE AUTO 0.02 K/mm3 (0.00-0.10); IMMATURE GRAN PERCENT AUTO 0 % (0-1); LYMPHOCYTES PERCENT AUTO 34 % (21-46); MONOCYTES PERCENT AUTO 7 % (4-13); Mean Corpuscular HGB 29.9 pg (26.0-34.0); Mean Corpuscular HGB Conc 32.8 g/dL (31.5-36.5); Mean Corpuscular Volume 91 fL (80-100); Mean Platelet Volume 10.8 fL (9.1-12.4); NEUTROPHILS ABSOLUTE AUTO 4.67 K/mm3 (1.96-9.15); NEUTROPHILS PERCENT AUTO 57 % (41-73); Platelet Count 285 K/mm3 (150-400); RDW Coefficient Variation 13.9 % (11.7-14.2); RDW Standard Deviation 46.5 fL (35.1-46.3); Red Blood Cell Count 3.74 M/mm3 (3.80-5.20); White Blood Cell Count 8.26 K/mm3 (4.00-11.30)
[2023-11-10 12:10] LABS: Albumin, Blood 2.9 g/dL (3.4-5.0); Albumin/Globulin Ratio 0.7 (0.8-1.8); Bilirubin, Total 0.4 mg/dL (0.1-1.0); Creatinine, Blood 0.91 mg/dL (0.40-1.00); Globulin, Blood 4.1 g/dL (2.2-4.0); Potassium, Blood 3.3 mmol/L (3.5-5.5)
== END | disposition home or self-care (01) ==
LOC: LAB SHORT 10:40
PROVIDERS: Family Medicine
DX: K75.0 Abscess of liver (principal)
CPT/HCPCS: 80053; 85025

== ENCOUNTER 2024-03-06 10:44 | Emergency (ER) | payer OTHER ==
[~2024-03-06] VITALS: Ht 157.5 cm; Wt 70.3 kg
[2024-03-06] MEDS ORDERED: ELIQUIS5 M2 PO (10:56)
[2024-03-06] MEDS ORDERED: Aspir 8181 MG PO (10:57)
[2024-03-06] MEDS ORDERED: Acetaminophen 500 MG Tab PO ONE (11:20)
[2024-03-06] MEDS ORDERED: Methyl Salicylate/Menth/Camph 57 GM TUBE TOP ONE (11:20)
[2024-03-06] MEDS ORDERED: Methocarbamol 500 MG Tab PO ONE (11:20)
[2024-03-06 12:15] VITALS: BP 166/102
[2024-03-06] MEDS ORDERED: Robaxin750 MG PO (12:46)
== END 2024-03-06 12:58 | disposition home or self-care (01) ==
LOC: ER 10:44
DX: S16.1XXA Strain of muscle, fascia and tendon at neck level, initial encounter (principal); S46.912A Strain of unspecified muscle, fascia and tendon at shoulder and upper arm level, left arm, initial encounter; I10 Essential (primary) hypertension; E78.5 Hyperlipidemia, unspecified; M62.830 Muscle spasm of back; J44.9 Chronic obstructive pulmonary disease, unspecified; Z79.899 Other long term (current) drug therapy; Z79.01 Long term (current) use of anticoagulants; Z79.82 Long term (current) use of aspirin; Z87.891 Personal history of nicotine dependence; V89.2XXA Person injured in unspecified motor-vehicle accident, traffic, initial encounter
CPT/HCPCS: 70450; 72125; 99284-25; A9270

== ENCOUNTER → 2024-12-20 | Outpatient (CLI) | payer OTHER ==
[~2024-12-20] MED LIST changes: +Aspir 8181 MG PO; +ELIQUIS5 M2 PO; +Robaxin750 MG PO
[2024-12-20 16:34] LABS: BASOPHILS ABSOLUTE AUTO 0.04 K/mm3 (0.00-0.23); BASOPHILS PERCENT AUTO 0 % (0-2); EOSINOPHILS ABSOLUTE AUTO 0.10 K/mm3 (0.00-0.68); EOSINOPHILS PERCENT AUTO 1 % (0-6); Hematocrit 47.2 % (33.0-51.0); Hemoglobin 15.9 g/dL (11.5-16.0); IMMATURE GRAN ABSOLUTE AUTO 0.05 K/mm3 (0.00-0.10); IMMATURE GRAN PERCENT AUTO 1 % (0-1); LYMPHOCYTES ABSOLUTE AUTO 3.14 K/mm3 (0.84-5.20); LYMPHOCYTES PERCENT AUTO 30 % (21-46); MONOCYTES ABSOLUTE AUTO 0.63 K/mm3 (0.16-1.47); MONOCYTES PERCENT AUTO 6 % (4-13); Mean Corpuscular HGB Conc 33.7 g/dL (31.5-36.5); Mean Corpuscular Volume 92 fL (80-100); NEUTROPHILS ABSOLUTE AUTO 6.49 K/mm3 (1.96-9.15); NEUTROPHILS PERCENT AUTO 62 % (41-73); NRBC ABSOLUTE 0.00 K/mm3 (0.00-0.02); NRBC Auto 0.0 /100 WBC (0.0-0.2); Platelet Count 303 K/mm3 (150-400); RDW Coefficient Variation 12.6 % (11.7-14.2); RDW Standard Deviation 42.8 fL (35.1-46.3)
[2024-12-20 19:28] LABS: Alanine Aminotransfer (ALT/SGP 39 U/L (12-78); Albumin, Blood 3.9 g/dL (3.4-5.0); Albumin/Globulin Ratio 1.1 (0.8-1.8); Anion Gap 5 mmol/L (3-11); Aspartate Aminotrans (AST/SGOT 36 U/L (12-37); Bilirubin, Total 0.7 mg/dL (0.1-1.0); Blood Urea Nitrogen 12 mg/dL (8-24); CHOL/HDL RATIO 2.0; CO2, Blood 29 mmol/L (21-32); Calcium, Blood 9.2 mg/dL (8.5-10.1); Chloride, Blood 105 mmol/L (98-108); Cholesterol 211 mg/dL (50-200); Creatinine, Blood 0.62 mg/dL (0.40-1.00); Globulin, Blood 3.7 g/dL (2.2-4.0); Glucose, Blood 111 mg/dL (70-99); HDL Cholesterol 106 mg/dL (>39); LDL/HDL RATIO 0.8; Low Density Lipoprotein Chol 87 mg/dL (0-110); Potassium, Blood 3.4 mmol/L (3.5-5.5); Sodium, Blood 136 mmol/L (136-145); Thyroid Stimulating Hormone 2.690 uIU/mL (0.360-4.800); Total Protein, Blood 7.6 g/dL (6.4-8.2); Triglycerides 90 mg/dL (30-160); Very Low Density Lipoprot Chol 18 mg/dL (6-32)
== END ==
LOC: LAB SHORT 11:29 → LAB 11:29
PROVIDERS: Family Medicine
DX: Z51.81 Encounter for therapeutic drug level monitoring (principal); Z79.899 Other long term (current) drug therapy
CPT/HCPCS: 80053; 80061; 82306; 83036; 84443; 85025